=== PATIENT | male | born 1950 | race Caucasian/White ===

== ENCOUNTER 2021-01-19 16:12 | Inpatient (IN) | payer OTHER ==
[~2021-01-19] VITALS: Ht 182.9 cm; Wt 90.1 kg
--- NOTE | ~2021-01-19 | O ---
[facility] [place] [address] OPERATIVE REPORT Name: JACERAQUEL Room #: 438- ADM IN M.R.#: [id number] Admission: 01/19/21 Attend Phys: Bruce Larry MD Discharge: Date of : 46 Report #: [id number] THIS REPORT FOR: cc: FAM - Family physician unknown FAM - Family physician unknown Shad Gunter MD ~ DATE OF SERVICE: 01/21/2021 PREOPERATIVE DIAGNOSES: Right second toe osteomyelitis. POSTOPERATIVE DIAGNOSES: Right second toe osteomyelitis. PROCEDURE: Right second toe with metatarsal head second ray amputation. SURGEON: Dr. Shad Gunter. WINDING DEPARTMENT SUPERVISOR: Lavonne Barrios. ANESTHESIA: General. ESTIMATED BLOOD LOSS: Minimal. DRAINS: No drains. TOURNIQUET TIME: 15 minutes. DESCRIPTION OF PROCEDURE: The patient brought to the operating room where he was placed under general anesthesia. Once under adequate general anesthesia, his right lower extremity was prepped and draped in a sterile manner. The extremity was elevated and a tourniquet placed to 250 mmHg. A racquet-shaped incision was then made about the base of the proximal phalanx of the second toe. Sharp dissection was carried directly down to the bone. There was some purulence noted. This was then carried proximally to the metatarsophalangeal joint where the toe was disarticulated exposing the metatarsal head. The metatarsal was then transected through the neck with a sagittal saw and the metatarsal head was excised with a rongeur. Once complete, the wound was irrigated copiously and closed with 3-0 nylon suture. The wound was dressed with Xeroform, 4 x 4s, and sterile soft compressive dressing was placed. Tourniquet was let down approximately 15 minutes. The remainder of the toes were pink and warm with good capillary refill. There were no complications from [facility] [address] [place] [address] OPERATIVE REPORT Name: [facility] Room #: 438-P [facility] IN .R.#: [id number] Admission: 01/19/21 Attend Phys: Bruce Larry MD Discharge: Date of : 46 Report #: [id number] the procedure. The patient tolerated the procedure well and went to the recovery room without incident. By: [id number] Shad Gunter MD /nt
[2021-01-19 23:40] LABS: CHOLESTEROL 92 mg/dL (<200); HDL CHOLESTEROL 32 mg/dL (>40); LDL CHOLESTEROL 40 mg/dL (<100); TC:HDL 2.9 Ratio (Not establshd); TRIGLYCERIDE 101 mg/dL (<150); VLDL 20 mg/dL (<40)
[2021-01-20 00:05] LABS: SERUM ASSESSMENT Clear
--- NOTE | 2021-01-20 02:38 | NUR ---
PT ARRIVED A DIRECT ADMIT FROM [facility] @2020 HRS. ADMISSION COMPLETED. PT IS ALERT AND ORIENTED. UP AD SUMA IN ROOM.PT DENIES PAIN. AFEBRILE.ABTS GIVEN, IVF STARTED. PICS OF R 2ND TOE WOUND TAKEN. PT APPEARS TO BE IN NO DISTRESS. NPO AFTER MIDNOC-ORTHO CONSULT IN PLACE-WILL CONTINUE WITH POC TILL EOS.
[2021-01-20 05:40] LABS: HEMOGLOBIN 10.1 gm/dL (14.0-18.0); MCH 30.8 pg (26.0-34.0); MCHC 33.8 g/dL (28.0-37.0); RBC 3.29 mil/uL (4.50-6.00); RDW 17.7 % (10.5-14.5); WBC 6.9 thou/uL (4.0-11.0)
[2021-01-20 05:55] LABS: INR 1.1; PROTIME 11.7 Seconds (9.3-11.4)
[2021-01-20 06:05] LABS: ALBUMIN 3.5 g/dL (3.4-5.0); CALCIUM 8.7 mg/dL (8.5-10.1); CREATININE 1.4 mg/dL (0.7-1.3); TOTAL BILIRUBIN 0.5 mg/dL (0.2-1.0); TOTAL PROTEIN 6.8 g/dL (6.4-8.2)
[2021-01-20 08:20] VITALS: BP 144/57
--- NOTE | 2021-01-20 09:37 | NUR ---
ASSESSMENT: CM REVIEWED CHART AND SPOKE WITH PATIENT. PT WAS ADMITTED FROM [facility] DUE TO DIABETIC FOOR ULCER AND IS CURRENTLY ON IV ANBX. PT REPORTS LIVING IN A HOUSE ALONE. PT STATES HIS JUST RECENTLY AND HIS DAUGHTER HAS BEEN STAYING WITH HIM AND IS STAYING UNTIL 01/31. HE REPORTS SHE LIVES ABOUT THREE HOURS AWAY FROM HIM. PT REPORTS THAT HE HAS NO STEPS IN THE HOME HE HAS TO USE. PT REPORTS HAVING A CANE, WALKER, AND BEDSIDE COMMODE AT HOME BUT REPORTS NOT USING THEM. PT REPORTS HE HAS NO HX OF HH IN THE PAST OR SNF. CM DISCUSSED ROLE AND WILL CONTINUE TO FOLLOW TO ASSIST NEEDED. PT REPORTS HE WOULD BENEFIT FROM HH AT DISCHARGE AND HAS NO PREFERENCE OF AGENCY. CM WILL ATTEMPT TO CONTACT HH THAT GOES TO PTS SERVICE AREA. CM WILL CONTINUE TO FOLLOW.
[2021-01-20 16:30] VITALS: BP 131/56
[2021-01-20 18:55] VITALS: BP 155/67
--- NOTE | 2021-01-20 19:43 | NUR ---
Assumed pt care this am. Pt is alert & oriented x4. Pt was admitted from [facility]. Pt has an MRI on R 2nd toe revealed as osteomyelitis. Pt is accucheck achs & has well controlled BG this shift. Pt is on room air. Covid result is still pending. Pt will have surgery tomorrow for R foot second toe & metatarsal head amputation. Pt has IV site on L FA. Pt is up ad bianca. Pt on the bed sleeping, bed on the lowest position, side rails up x2, call light within reach. Follow POC. Endorse night nurse.
[2021-01-21] VITALS (8 sets, daily range): BP systolic 136–162; BP diastolic 56–89
--- NOTE | 2021-01-21 03:50 | NUR ---
ASSUMED PT CARE AT 1900.PT CALM AND PLEASANT.PT UP ADLINB IN HIS ROOM WITH A STEADY GAIT.COVID TEST NEGATIVE.BG MONITORED ,NO COVERAGE GIVEN PER PT'S REQUEST.R 2ND TOE OSTEOMYELITIS NOTED.PT NPO AT THIS TIME FOR A POSSIBLE AMPUTATION LATER IN THE DAY.CALL LIGHT WITHIN REACH.
--- NOTE | 2021-01-21 16:10 | NUR ---
Assumed pt care this am. Pt is alert & oriented x 4. Pt has L FA IV site. Pt has right 2nd toe @ metatarsal head resection this am. Pt is accucheck achs. Pt was covid negative. Pt is up ad bianca. Pt on the bed, bed on the lowest position, side rails up, call light within reach. Will continue to monitor pt.
--- NOTE | 2021-01-22 01:56 | NUR ---
ASSESSED AT START OF SHIFT. PT A&OX4. RATES PAIN 7/10 MANAGED BY PO PAIN MED. PT UP AD SUMA. RT ORTHO BOOTS ON EXT SURGICAL DRESSING C/D/I. PT DENIES N/V OR SPB. EVENING MEDS GIVEN AND PT RUFINO IT WELL. BSG CHECKED NO COVERAGE. CALL LIGHT AT REACH AND WILL CONT TO MONITOR.
[2021-01-22 04:45] VITALS: BP 150/61
[2021-01-22 05:52] LABS: HEMATOCRIT 28.7 % (42.0-52.0); HEMOGLOBIN 9.6 gm/dL (14.0-18.0)
[2021-01-22 06:02] LABS: CALCIUM 8.5 mg/dL (8.5-10.1); CREATININE 1.4 mg/dL (0.7-1.3); POTASSIUM 4.4 mmol/L (3.5-5.1)
[2021-01-22 07:35] VITALS: BP 146/66
--- NOTE | 2021-01-22 10:26 | NUR ---
ASSUMED PT CARE AROUND 0700. PT ALERT X ORIENTED X 4. ON ROOM AIR. UP AT SUMA. ASSESMENTS DONE. VSS. IV LEFT FA WITH NS RUNNING AT 125ML/HR. PAIN OF 5 NOTED AND HYDROCODONE GIVEN FOR PAIN WITH PAIN RELIEF. FALL PRECAUTION IN PLACE. PT WILL CALL FOR HELP.WILL CONTINUE TO MONITOR.
[2021-01-22 15:11] VITALS: BP 146/66
--- NOTE | 2021-01-22 15:24 | NUR ---
spoke with patient who was cleared by physical therapy for home. Offered post acute care for patient and he prefers home with care. [facility] did not rec referral. Faxed referral for review. THey cannot accept if patient to dc home on IV antibiotics. 3 weeks ago. Dtr staying with patient upon dc from hospital. Casemgt following
--- NOTE | 2021-01-22 15:42 | NUR ---
CM RECEIVED A CALL FROM TOSIN AT [facility] [phone] THAT STATES SHE CAN BE CONTACTED TO ASSIST WITH ANY ASSISTANCE WITH DISCHARGE NEEDS.
[2021-01-22 16:15] VITALS: BP 162/73
[2021-01-22 19:32] VITALS: BP 174/78
--- NOTE | 2021-01-23 02:46 | NUR ---
ASSESSED AT START OF SHIFT. PT A&OX4. EVENING MEDS GIVEN AND PT RUFINO IT WELL. IV INTACT WITH FLUIDS INFUSING. PT UP ADL IB TO THE BATHROOM. RT FOOT DRESSING C/D/I WITH ORTHO BOOT ON FOOT. FOOT ELEVATED ON PILLOW. CALL LIGHT AT REACH AND WILL CONT TO MONITOR.
[2021-01-23 07:32] VITALS: BP 160/72
--- NOTE | 2021-01-23 11:19 | NUR ---
ASSUMED PT CARE THIS AM. PT VSS, A&OX4. PT PLEASANT, ABLE TO MAKE NEEDS KNOWN. DRESSING ON RIGHT FOT IS C/D/I. REPORTING PAIN OF A LEVEL 2, DECLINING ANY PAIN MEDICATION AT THIS TIME. PATIENT REMAINS CONTINENT, AND IS AMBULATORY TO THE BATHROOM AND AROUND UNIT. IV PATENT, FLUIDS INFUSING WITHOUT ISSUE. CALLS APPROPRIATELY WHEN NEEDED. ON ROOM AIR.
--- NOTE | 2021-01-23 12:54 | NUR ---
kike dentk w/[facility] with [facility]. [facility] stated they did not receive referral. cm faxed referral to [phone].
[2021-01-23 14:57] VITALS: BP 146/66
--- NOTE | 2021-01-23 15:00 | NUR ---
[facility] confirmed they can accept pt onto [facility]. will call pt by tuesday the latest to arrange visit.
[2021-01-23] MEDS ORDERED: LINEZOLID600 MG PO (15:12)
[2021-01-23] MEDS ORDERED: NEURONTIN 300M300 M2 PO (15:12)
[2021-01-23] MEDS ORDERED: BAYER CHEWABLE81 MG PO (15:12)
[2021-01-23] MEDS ORDERED: LANTUS SUBQ (15:12)
[2021-01-23] MEDS ORDERED: CIPROFLOXACIN250 M2 PO (15:12)
[2021-01-23] MEDS ORDERED: CYMBALTA30 MG PO (15:12)
[2021-01-23] MEDS ORDERED: ATORVASTATIN CA10 MG PO (15:12)
[2021-01-23] MEDS ORDERED: GLUCOTROL5 MG PO (15:12)
[2021-01-23] MEDS ORDERED: HUMALOG100 UNIT/1 SUBQ (15:12)
[2021-01-23 16:11] VITALS: BP 163/77
== END 2021-01-23 17:38 | disposition home health service (06) | DRG 617 ==
LOC: 4S 16:12
PROVIDERS: Nurse Practitioner Family; Orthopaedic Surgery Foot and Ankle Surgery; ADMIT Internal Medicine; ATTEND Internal Medicine
PROC: 0Y6R0Z0 Detachment at Right 2nd Toe, Complete, Open Approach (ICD-10-PCS; principal; 2021-01-21)
DX: E11.621 Type 2 diabetes mellitus with foot ulcer (principal); M86.8X8 Other osteomyelitis, other site; Z20.822 Contact with and (suspected) exposure to COVID-19; E11.69 Type 2 diabetes mellitus with other specified complication; E78.5 Hyperlipidemia, unspecified; E11.42 Type 2 diabetes mellitus with diabetic polyneuropathy; N18.30 Chronic kidney disease, stage 3 unspecified; I25.10 Atherosclerotic heart disease of native coronary artery without angina pectoris; F32.9 Major depressive disorder, single episode, unspecified; E11.22 Type 2 diabetes mellitus with diabetic chronic kidney disease; L03.031 Cellulitis of right toe; K21.9 Gastro-esophageal reflux disease without esophagitis; D63.8 Anemia in other chronic diseases classified elsewhere; I12.9 Hypertensive chronic kidney disease with stage 1 through stage 4 chronic kidney disease, or unspecified chronic kidney disease; Z79.899 Other long term (current) drug therapy
CPT/HCPCS: 10102; 50010; 50101; 50386; 50951; 56527; 57091; 62110; 62900; 70005